=== PATIENT | female | born 1985 | race Two or more races ===

== ENCOUNTER → 2025-02-11 | Outpatient (CLI) | payer MEDICAID, SELFPAY ==
--- NOTE | 2025-02-11 09:00 | XR_ITS ---
Examination: Breast ultrasound, unilateral, right Date and time of exam: February 11, 2025 0919 hours INDICATIONS: Outside mammogram December 17, 2024 14 mm asymmetry MLO view right breast posterior depth Technique: Real-time josue scale ultrasonographic imaging performed right breast including all 4 quadrants as well as nipple retroareolar and axillary region. Findings: 9:00 oval mass lobular margins 3 x 2 mm 9:00 intramammary lymph node 7 x 8 mm 10:00 oval mass with shadowing taller than wide indistinct margins 7 x 8 x 8 mm Enlarged right axillary lymph node although no definite architectural distortion IMPRESSION: BI-RADS Category 4: Suspicious for malignancy Suspicious nodule 10:00 position right breast, biopsy is needed to exclude breast carcinoma, this mass is amenable to ultrasound-guided breast biopsy for diagnosis Six-month follow-up right axillary lymph node is also needed
--- NOTE | 2025-02-11 09:30 | XR_ITS ---
Examination: Diagnostic digital mammography, unilateral, right Computer aided detection 3-D breast Tomosynthesis, unilateral Date and time of exam: February 11, 2025 at 0945 hours INDICATIONS: Outside mammogram December 17, 2024 14 mm focal asymmetry upper right breast MLO view posterior depth Technique: Nonmagnified MLO, CC views of the right breast have been obtained, reconstructed from 3-D Tomosynthesis images. R2 computer aided detection program utilized for evaluation of suspicious masses and/or abnormal calcifications. 3-D Tomosynthesis images obtained. Findings: The breast is heterogeneously dense, which may obscure small masses 10:00 nodule upper right breast partially indistinct margins, better seen on the right breast sonogram today Impression: BI-RADS category 4: Suspicious for malignancy Suspicious nodule 10:00 position right breast, better depicted on the right breast sonogram today, biopsy is needed to exclude breast carcinoma, this nodule is amenable to ultrasound-guided guided breast biopsy for diagnosis
== END | disposition home or self-care (01) ==
PROVIDERS: PCP Nurse Practitioner Family; Referring Provider Nurse Practitioner Family; Visit Provider Nurse Practitioner Family
DX: R92.341 Mammographic extreme density, right breast (principal); N63.11 Unspecified lump in the right breast, upper outer quadrant
CPT/HCPCS: 76641; 77061; 77065; G0279

== ENCOUNTER → 2025-04-23 | Outpatient (CLI) | payer MEDICAID, SELFPAY ==
[2025-04-22 10:58] LABS: Basophils # (Auto) 0.1 Thou/mm3 (0.0-0.2); Basophils % (Auto) 1 % (0-2.5); Eosinophils # (Auto) 0.2 Thou/mm3 (0.0-0.5); Eosinophils % (Auto) 3 % (0-10); Hematocrit 39.7 % (36.0-46.0); Hemoglobin 14.0 g/dL (12.0-16.0); Immature Granulocytes Auto 0.03 Thou/mm3 (0.00-0.00); Lymphocytes # (Auto) 2.6 Thou/mm3 (1.0-4.8); Lymphocytes % (Auto) 37 % (10-50); Mean Corpuscular HGB Conc 35.3 g/dl (31.0-37.0); Mean Corpuscular Hemoglobin 29.3 pg (25.0-35.0); Mean Corpuscular Volume 83 fL (80-100); Monocytes # (Auto) 0.6 Thou/mm3 (0.0-0.8); Monocytes % (Auto) 9 % (0-12); Neutrophils # (Auto) 3.4 Thou/mm3 (1.8-7.7); Neutrophils % (Auto) 50 % (37-80); Nucleated Red Blood Cell # 0.00 Thou/mm3 (0.00-0.00); Nucleated Red Blood Cell % 0 /100 WBC (0); Platelet Count 446 Thou/mm3 (140-440); RDW Standard Deviation 39.5 fL (36.4-46.3); Red Blood Count 4.78 Miln/mm3 (4.00-5.20); White Blood Count 6.9 Thou/mm3 (3.6-11.0)
[2025-04-22 11:04] LABS: HCG,Qualitative Serum Negative
[2025-04-22 11:21] LABS: INR 1.0 (0.9-1.3); Partial Thromboplastin Time 26.6 Seconds (22.0-36.0); Prothrombin Time 10.7 Seconds (9.0-12.2)
--- NOTE | 2025-04-23 10:00 | XR_ITS ---
Examination: Ultrasound right breast TECHNIQUE: Limited sonographic images right breast Date and time: April 23, 2025 1022 hours INDICATIONS: Breast sonogram February 11, 2025 BI-RADS 4 suspicious mass 10:00 position right breast FINDINGS: Probably benign scar formation 10:00 position right breast IMPRESSION: BI-RADS Category 3: Probably benign findings Recommend continued 3-6 month follow-up right breast sonogram to document stability of probable scarring 10:00 position right breast
== END | disposition home or self-care (01) ==
PROVIDERS: Radiology Diagnostic Radiology; PCP Family Medicine; Referring Provider Nurse Practitioner Family; Visit Provider Nurse Practitioner Family
DX: N64.89 Other specified disorders of breast (principal); R92.2 Inconclusive mammogram
CPT/HCPCS: 36415; 76642; 84703; 85025; 85610; 85730

== ENCOUNTER 2025-09-26 07:43 | Emergency (ER) | payer MEDICAID, SELFPAY ==
[2025-09-26 07:46] VITALS: BP 138/99; PULSE 87; RESP 19; TEMP 36.8; O2SAT 99
[2025-09-26 07:47] VITALS: PULSE 94; RESP 16; O2SAT 99; BMI 27.4
--- NOTE | 2025-09-26 08:11 | XR_ITS ---
Examination: CT abdomen and pelvis without contrast. Coronal 3-D reconstructions. Sagittal 2-D reconstructions. Date and time of exam: September 26, 2025, 1028 hours COMPARISON: 06/25/2019 INDICATIONS: Left flank pain this morning, history kidney stones CTDI: vol (mGy): 6.68 DLP: (mGycm): 360 Technique: Axial images of the abdomen have been obtained, 3 mm slice thickness Intravenous contrast material has not been administered. Low dose protocols were performed. One or more of the following dose reduction techniques were used; automated exposure control, adjustment of the mA and/or KV according to patient size, use of iterative reconstruction technique. Findings: No visualized liver or splenic lesion No gallstones No pancreatic or adrenal mass 2 mm lower pole left renal calculus Mild left hydronephrosis, 6 mm proximal left ureteral calculus Aorta normal size Normal appendix No pelvic mass No bladder mass or bladder calculi Intact osseous structures IMPRESSION: Mild left hydronephrosis secondary to 6 mm proximal left ureteral calculus
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
[2025-09-26 08:33] LABS: Collection Type, Urine Clean Catch
[2025-09-26 08:35] LABS: Basophils # (Auto) 0.0 Thou/mm3 (0.0-0.2); Basophils % (Auto) 0 % (0-2.5); Eosinophils # (Auto) 0.0 Thou/mm3 (0.0-0.5); Eosinophils % (Auto) 0 % (0-10); Hematocrit 39.3 % (36.0-46.0); Hemoglobin 13.6 g/dL (12.0-16.0); Immature Granulocytes Auto 0.04 Thou/mm3 (0.00-0.00); Lymphocytes # (Auto) 1.0 Thou/mm3 (1.0-4.8); Lymphocytes % (Auto) 11 % (10-50); Mean Corpuscular HGB Conc 34.6 g/dl (31.0-37.0); Mean Corpuscular Hemoglobin 28.2 pg (25.0-35.0); Mean Corpuscular Volume 81 fL (80-100); Monocytes # (Auto) 0.4 Thou/mm3 (0.0-0.8); Monocytes % (Auto) 4 % (0-12); Neutrophils # (Auto) 7.4 Thou/mm3 (1.8-7.7); Neutrophils % (Auto) 84 % (37-80); Nucleated Red Blood Cell # 0.00 Thou/mm3 (0.00-0.00); Nucleated Red Blood Cell % 0 /100 WBC (0); Platelet Count 426 Thou/mm3 (140-440); RDW Standard Deviation 38.1 fL (36.4-46.3); Red Blood Count 4.83 Miln/mm3 (4.00-5.20); White Blood Count 8.8 Thou/mm3 (3.6-11.0)
[2025-09-26 08:46] LABS: Bacteria,Urine Rare; Bilirubin,Urine Negative (Negative); Blood,Urine 3+ (Negative); Color,Urine Lt-Yellow (Lt Yel-Yel); Culture Indicated,Urine Not Indicated; Glucose, Urine Negative (Negative); Ketones,Urine 1+ (Negative); Leukocyte Esterase,Urine Negative (Negative); Nitrite,Urine Negative (Negative); PH,Urine 6.5 (5.0-7.0); Protein,Urine Negative (Neg - Trace); RBC,Urine 31 /hpf (0-3); Specific Gravity,Urine 1.013 (1.001-1.035); Squamous Epithelial Cell,Urine 4 /hpf (0-5); Urobilinogen,Urine Negative mg/dL (0.0-1.0); WBC,Urine 2 /hpf (0-5)
[2025-09-26 08:47] LABS: Clarity,Urine Hazy (Clear/Hazy)
[2025-09-26 08:54] LABS: Alanine Aminotransferase 48 U/L (10-49); Albumin, Serum 4.5 gm/dL (3.5-5.0); Albumin/Globulin Ratio 1.5 (1.2-2.2); Alkaline Phosphatase 60 U/L (46-116); Anion Gap 10 (7-16); Aspartate Amino Transferase 43 U/L (0-34); BUN/Creatinine Ratio 17 Ratio (12-20); Bilirubin,Total 0.6 mg/dL (0.3-1.2); Blood Urea Nitrogen 12 mg/dL (9-23); Calcium 9.6 mg/dL (8.3-10.6); Calcium (Corrected) 9.6 mg/dL (8.5-10.1); Carbon Dioxide 24.0 mMol/L (20.0-31.0); Chloride 105 mMol/L (98-107); Creatinine (Component) 0.7 mg/dL (0.6-1.3); Estimated Creatinine Clearance 95.6 mL/min (>60); Globulin 3.1 gm/dL (2.3-3.5); Glucose 105 mg/dL (74-106); HCG,Qualitative Serum Negative; Osmolality,Calculated 277 (275-295); Potassium 4.2 mMol/L (3.4-5.1); Sodium 139 mMol/L (136-145); Total Protein 7.6 gm/dL (5.7-8.2); eGFR > 60 See Note
[2025-09-26 10:20] VITALS: BP 114/84; PULSE 85; RESP 17; TEMP 36.9; O2SAT 97
[2025-09-26] MEDS: KETOROLAC INJ 30 MG/ML VIAL IVP (11:43)
[2025-09-26 11:48] VITALS: BP 141/87; PULSE 89; RESP 16; TEMP 36.7; O2SAT 97
== END 2025-09-26 11:54 | disposition home or self-care (01) ==
PROVIDERS: Emergency Provider Family Medicine; PCP Obstetrics & Gynecology
DX: N13.2 Hydronephrosis with renal and ureteral calculous obstruction (principal); M54.9 Dorsalgia, unspecified; V43.62XA Car passenger injured in collision with other type car in traffic accident, initial encounter; Y92.413 State road as the place of occurrence of the external cause
CPT/HCPCS: 36415; 74176; 80053; 81001; 84703; 85025; 99283; J1885

== ENCOUNTER 2025-10-01 18:32 | Emergency (ER) | payer MEDICAID, SELFPAY ==
[2025-10-01 19:05] VITALS: BP 133/99; PULSE 115; RESP 18; TEMP 36.7; O2SAT 98; BMI 27.4
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
[2025-10-01] MEDS: METOCLOPRAMIDE 5 MG TABLET 10 MG PO (19:42)
[2025-10-01] MEDS: KETOROLAC INJ 60 MG/2 ML VIAL IM (22:24)
== END 2025-10-01 22:27 | disposition home or self-care (01) ==
PROVIDERS: Emergency Provider Emergency Medicine; PCP Family Medicine
DX: S09.90XA Unspecified injury of head, initial encounter (principal); V49.9XXA Car occupant (driver) (passenger) injured in unspecified traffic accident, initial encounter; Y92.410 Unspecified street and highway as the place of occurrence of the external cause; E03.9 Hypothyroidism, unspecified
CPT/HCPCS: 70450; 96372; 99283; J1885; A9270